=== PATIENT | female | born 1950 | race Caucasian/White ===

== ENCOUNTER 2018-09-13 16:09 | Inpatient (IN) | payer OTHER ==
[2018-09-13 16:47] VITALS: BMI 28.3
--- NOTE | 2018-09-13 17:06 | HP ---
"CIWA Score Nausea/Vomitin-Int. Nausea w/Dry Heave Muscle Tremors: 4-Moderate,w/Arms Extend Anxiety: 1-Mildly Anxious Agitation: 4-Moderately Restless Paroxysmal Sweats: 1-Minimal Palms Moist (Facial moisture w/o beads) Orientation: 0-Oriented Tacttile Disturbances: 0-None Auditory Disturbances: 0-None Visual Disturbances: 0-None Headache: 0-None Present CIWA-Ar Total Score: 14 - Admission Criteria OASAS Guidelines: Admission for Medically Managed Detox: Requires at least one of the followin. CIWA greater than 12 2. Seizures within the past 24 hours 3. Delirium tremens within the past 24 hours 4. Hallucinations within the past 24 hours 5. Acute intervention needed for co occurring medical disorder 6. Acute intervention needed for co occurring psychiatric disorder 7. Severe withdrawal that cannot be handled at a lower level of care (continued vomiting, continued diarrhea, abnormal vital signs) requiring intravenous medication and/or fluids 8. Patient presents the following: CIWA greater than 12 Admission Criteria Met: Admission criteria met Admission ROS [facility] Chief Complaint: Here for alcohol withdrawal. Allergies/Adverse Reactions: Allergies Allergy/AdvReac Type Severity Reaction Status Date / Time No Known Allergies Allergy Verified 09/13/18 16:47 History of Present Illness: Hx alcohol use since age 42. Denies hx blackouts or seizures. Denies other illicit drug use. Longest length of sobriety 1 year. Hx. aortic valve replacement and hypothyroid C/o depression - not seeing a mental health provider. Denies thoughts of harming self and others. Search Terms: Merle Martinez, 1950 Search Date: 09/13/2018 04:53:32 PM The Drug Utilization Report below displays all of the controlled substance prescriptions, if any, that your patient has filled in the last twelve months. The information displayed on this report is compiled from pharmacy submissions to the Department, and accurately reflects the information as submitted by the pharmacies. This report was requested by: Naye Yan | Reference #: [id number] There are no results for the search terms that you entered. Exam Limitations: No Limitations - Ebola screening Have you traveled outside of the country in the last 21 days: No (N) Have you had contact with anyone from an Ebola affected area: No Have you been sick,other than usual withdrawal symptoms: No Do you have a fever: No - Review of Systems Constitutional: Diaphoresis, Changes in sleep (Difficulty staying asleep) EENT: reports: Blurred Vision Respiratory: reports: Cough (Dry cough x 3 months), Shortness of Breath Cardiac: reports: No Symptoms Reported, Other (Hx aortic valve replacement) GI: reports: Diarrhea (r/t withdrawal), Nausea (r/t withdrawal) : reports: Incontinence (Stress and urge incontinence. Denies burning or pain w/ urination.) Musculoskeletal: reports: No Symptoms Reported Integumentary: reports: Rash (Fungal rash underneath breasts) Neuro: reports: Tremors Endocrine: reports: No Symptoms Reported Hematology: reports: No Symptoms Reported Psychiatric: reports: Judgement Intact, Orientated x3, Agitated, Anxious, Depressed (Denies thoughts of harming self and others.) Patient History - Patient Medical History Hx Anemia: No Hx Asthma: No Hx Chronic Obstructive Pulmonary Disease (COPD): No Hx Cancer: No Hx Cardiac Disorders: No Hx Congestive Heart Failure: No Hx Hypertension: No Hx Hypercholesterolemia: Yes (on med) Hx Pacemaker: No HX Cerebrovascular Accident: No Hx Seizures: No Hx Dementia: No Hx Diabetes: No Hx Gastrointestinal Disorders: No Hx Liver Disease: No Hx Genitourinary Disorders: No Hx Sexually Transmitted Disorders: No Hx Renal Disease (ESRD): No Hx Thyroid Disease: Yes (hypothyroidism) Hx Human Immunodeficiency Virus (HIV): No Hx Hepatitis C: No Hx Depression: Yes Hx Suicide Attempt: No Hx Bipolar Disorder: No Hx Schizophrenia: No - Patient Surgical History Past Surgical History: Yes Hx Neurologic Surgery: No Hx Cataract Extraction: No Hx Cardiac Surgery: Yes ( aortic valve repair bovine 2006 at [facility]) Hx Lung Surgery: No Hx Breast Surgery: No Hx Breast Biopsy: No Hx Abdominal Surgery: No Hx Appendectomy: No Hx Cholecystectomy: No Hx Genitourinary Surgery: No Hx Section: No Hx Orthopedic Surgery: No Anesthesia Reaction: No - PPD History Previous Implant?: Yes Documented Results: Negative w/proof Implanted On Prior R Admission?: Yes Date: 02/11/16 PPD to be Administered?: Yes - Reproductive History Patient is a Female of Child Bearing Age (11 -55 yrs old): No - Smoking Cessation Smoking history: Never smoked Have you smoked in the past 12 months: No Hx Chewing Tobacco Use: No - Substance & Tx. History Hx Alcohol Use: Yes Hx Substance Use: Yes Substance Use Type: Alcohol Hx Substance Use Treatment: Yes (detox, AA) - Substances Abused Alcohol Route: Oral Frequency: Daily Amount used: 1PINT Age of first use: 42 Date of Last Use: 09/13/18 Family Disease History - Family Disease History Family Disease History: Other: Father (alcohol,), Mother (alcohol, ) Admission Physical Exam S - Vital Signs Vital Signs: Vital Signs - 24 hr 09/13/18 16:36 Temperature 96.2 F L Pulse Rate 74 Respiratory 18 Rate Blood Pressure 126/86 - Physical General Appearance: Yes: Mild Distress, Tremorous, Irritable, Sweating (Mild facial sweating), Anxious HEENTM: Yes: EOMI (jerking movements of eyes on (L) lateral gaze), Hearing grossly Normal, Normocephalic, Normal Voice, [place], Other (Dry mucous membranes) Respiratory: Yes: Lungs Clear, Normal Breath Sounds, No Respiratory Distress Neck: Yes: No masses,lesions,Nodules, Supple Breast: Yes: Other (Dry flat rash w/ increased erythema folds of both breasts) Cardiology: Yes: Regular Rhythm, Regular Rate, S1, S2 Abdominal: Yes: Non Tender, Soft, Increased Bowel Sounds, Protuberent ( Increased abdominal adiposity) Genitourinary: Yes: Incontinient (Urge and stress incontinence) Back: Yes: Normal Inspection Musculoskeletal: Yes: full range of Motion, Gait Steady Extremities: Yes: Normal Capillary Refill, Non-Tender, Tremors (of hands when arms extended) Neurological: Yes: drywall applicator II-XII NML intact (Jerking movements of eyes on (L) lateral gaze), Fully Oriented, Alert, Motor Strength 5/5, Normal Mood/Affect Integumentary: Yes: Normal Color, Dry (Decreased skin turgor, dry lips), Warm Lymphatic: Yes: Within Normal Limits - Diagnostic (1) Nystagmus Current Visit: Yes Status: Acute (2) Stress incontinence in female Current Visit: Yes Status: Chronic (3) Intertriginous candidiasis Current Visit: Yes Status: Chronic Comment: Bilateral breast folds (4) Alcohol dependence with uncomplicated withdrawal Current Visit: Yes Status: Acute (5) H/O aortic valve repair Current Visit: Yes Status: Chronic (6) Hypothyroidism Current Visit: Yes Status: Chronic Qualifiers: Hypothyroidism type: unspecified Qualified Code(s): E03.9 - Hypothyroidism , unspecified (7) Dehydration Current Visit: Yes Status: Acute Cleared for Admission S - Detox or Rehab [facility] Level of Care: Medically Managed Detox Regimen/Protocol: Librium [facility] Breath Alcohol Content Breath Alcohol Content: 0"
[2018-09-13] MEDS ORDERED: LOPERAMIDE HCL 2 MG CAPSULE PO PRN (17:42)
[2018-09-13] MEDS ORDERED: chlordiazePOXIDE HCL 25 MG CAPSULE PO PRN (17:42)
[2018-09-13] MEDS ORDERED: IBUPROFEN 400 MG TABLET (FP) PO PRN (17:42)
[2018-09-13] MEDS ORDERED: MAG HYDROX/AL HYDROX/SIMETH 30 ML UNIT-DOSE CUP PO PRN (17:42)
[2018-09-13] MEDS ORDERED: ACETAMINOPHEN 325 MG TABLET (FP) PO PRN (17:42)
[2018-09-13] MEDS ORDERED: MAGNESIUM HYDROX 2400MG/30ML ORAL SUSPENSION 30 ML CUP PO PRN (17:42)
[2018-09-13] MEDS ORDERED: MENTHOL/PHENOL 1 EACH UD MM PRN (17:42)
[2018-09-13] MEDS ORDERED: MAGNESIUM CITRATE 300 ML BOTTLE PO PRN (17:42)
[2018-09-13] MEDS ORDERED: guaiFENesin 200 MG/10 ML 10 ML UNIT-DOSE CUPS PO PRN (17:44)
[2018-09-13] MEDS ORDERED: chlordiazePOXIDE HCL 25 MG CAPSULE PO ONE (18:30)
[2018-09-13] MEDS: THIAMINE HCL 100 MG TABLET (FP) PO SCH (22:26)
[2018-09-13] MEDS: chlordiazePOXIDE HCL 25 MG CAPSULE PO SCH (22:26)
[2018-09-13] MEDS: MELATONIN 5 MG TABLETS PO PRN (22:27)
[2018-09-14] MEDS: chlordiazePOXIDE HCL 25 MG CAPSULE PO SCH ×4 (05:22→22:21)
[2018-09-14] MEDS: LEVOTHYROXINE NA 100 MCG TABLET (FP) PO SCH (07:25)
[2018-09-14] MEDS: PRENATAL VITAMINS W/ FOLIC ACID TABLET (FP) PO SCH (10:22)
[2018-09-14] MEDS: ASPIRIN COATED 81 MG TABLET.EC PO SCH (10:22)
[2018-09-14] MEDS: NYSTATIN POWDER 100,000 UNITS/GM - 15 GM TOPICAL POWDER TP SCH (10:23)
[2018-09-14 10:41] LABS: HEMATOCRIT 35.4 % (32.4-45.2); HEMOGLOBIN 11.7 GM/dL (10.7-15.3); MCH 35.4 pg (25.7-33.7); MCHC 32.9 g/dl (32.0-36.0); MEAN CELL VOLUME 107.4 fl (80-96); PLATELET COUNT 149 K/MM3 (134-434); RDW 18.3 % (11.6-15.6); WHITE BLOOD COUNT 3.8 K/mm3 (4.0-10.0)
[2018-09-14 11:04] LABS: ALBUMIN 3.6 g/dl (3.4-5.0); ALK PHOS 76 U/L (45-117); ANION GAP 9 MMOL/L (8-16); BILIRUBIN,TOTAL 0.7 mg/dL (0.2-1); BLOOD UREA NITROGEN 13 mg/dL (7-18); CALCIUM 8.7 mg/dL (8.5-10.1); CHLORIDE 103 mmol/L (98-107); CO2 27 mmol/L (21-32); CREATININE 0.9 mg/dL (0.55-1.3); GLUCOSE,RANDOM 99 mg/dL (74-106); POTASSIUM 4.2 mmol/L (3.5-5.1); SGOT/AST 53 U/L (15-37); SGPT/ALT 35 U/L (13-61); SODIUM 139 mmol/L (136-145); TOT PROT 6.7 g/dl (6.4-8.2)
--- NOTE | 2018-09-14 12:45 | PN ---
S CIWA - CIWA Score Nausea/Vomitin Muscle Tremors: 2 Anxiety: 3 Agitation: 2 Paroxysmal Sweats: 2 Orientation: 0-Oriented Tacttile Disturbances: 2-Mild Itch/Numbness/Burn Auditory Disturbances: 0-None Visual Disturbances: 0-None Headache: 1-Very Mild CIWA-Ar Total Score: 14 S Progress Note (SOAP) Subjective: Anxiety, interrupted sleep, muscle weakness Objective: 09/14/18 12:44 Vital Signs Period Temp Pulse Resp BP Sys/Hall Pulse Ox Last 24 Hr 96.2 F-98.2 F 67-86 -18 97-130/57-86 Laboratory Last Values WBC 3.8 K/mm3 (4.0-10.0) L 09/14/18 08:00 RBC 3.30 M/mm3 (3.60-5.2) L 09/14/18 08:00 Hgb 11.7 GM/dL (10.7-15.3) 09/14/18 08:00 Hct 35.4 % (32.4-45.2) 09/14/18 08:00 MCV 107.4 fl (80-96) H 09/14/18 08:00 MCH 35.4 pg (25.7-33.7) H 09/14/18 08:00 MCHC 32.9 g/dl (32.0-36.0) 09/14/18 08:00 RDW 18.3 % (11.6-15.6) H 09/14/18 08:00 Plt Count 149 K/MM3 (134-434) 09/14/18 08:00 MPV 8.0 fl (7.5-11.1) 09/14/18 08:00 Sodium 139 mmol/L (136-145) 09/14/18 08:00 Potassium 4.2 mmol/L (3.5-5.1) 09/14/18 08:00 Chloride 103 mmol/L (98-107) 09/14/18 08:00 Carbon Dioxide 27 mmol/L (21-32) 09/14/18 08:00 Anion Gap 9 MMOL/L (8-16) 09/14/18 08:00 BUN 13 mg/dL (7-18) 09/14/18 08:00 Creatinine 0.9 mg/dL (0.55-1.3) 09/14/18 08:00 Creat Clearance w eGFR > 60 (>60) 09/14/18 08:00 Random Glucose 99 mg/dL (74-106) 09/14/18 08:00 Calcium 8.7 mg/dL (8.5-10.1) 09/14/18 08:00 Total Bilirubin 0.7 mg/dL (0.2-1) 09/14/18 08:00 AST 53 U/L (15-37) H 09/14/18 08:00 ALT 35 U/L (13-61) 09/14/18 08:00 Alkaline Phosphatase 76 U/L (45-117) 09/14/18 08:00 Total Protein 6.7 g/dl (6.4-8.2) 09/14/18 08:00 Albumin 3.6 g/dl (3.4-5.0) 09/14/18 08:00 RPR Titer Nonreactive (NONREACTIVE) 09/14/18 08:10 Labs noted Assessment: 09/14/18 12:44 Withdrawal sx Plan: Continue detox
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
[2018-09-14] MEDS: THIAMINE HCL 100 MG TABLET (FP) PO SCH (22:21)
[2018-09-14] MEDS: MELATONIN 5 MG TABLETS PO PRN (22:22)
[2018-09-15] MEDS: chlordiazePOXIDE HCL 25 MG CAPSULE PO SCH ×3 (05:43→18:08)
[2018-09-15] MEDS: LEVOTHYROXINE NA 100 MCG TABLET (FP) PO SCH (06:32)
[2018-09-15] MEDS: PRENATAL VITAMINS W/ FOLIC ACID TABLET (FP) PO SCH (10:20)
[2018-09-15] MEDS: ASPIRIN COATED 81 MG TABLET.EC PO SCH (10:20)
[2018-09-15 11:13] LABS: URINE APPEARANCE SLCLOUDY; URINE BILIRUBIN NEGATIVE (<2.0 mg/dL); URINE COLOR YELLOW; URINE GLUCOSE (UA) NEGATIVE (NEGATIVE); URINE KETONE NEGATIVE (NEGATIVE); URINE LEUK ESTERASE NEGATIVE (NEGATIVE); URINE NITRITE POSITIVE (NEGATIVE); URINE PROTEIN NEGATIVE (NEGATIVE); URINE UROBILINOGEN NEGATIVE mg/dL (0.2-1.0)
[2018-09-15 11:19] LABS: EPI CELLS FEW /HPF (FEW); URINE BACTERIA FEW /hpf (NONE SEEN); URINE MUCUS RARE
--- NOTE | 2018-09-15 12:35 | PN ---
[facility] CIWA - CIWA Score Nausea/Vomitin-No Nausea/No Vomiting Muscle Tremors: 3 Anxiety: 1-Mildly Anxious Agitation: 2 Paroxysmal Sweats: 1-Minimal Palms Moist Orientation: 0-Oriented Tacttile Disturbances: 1-Very Mild Itch/Numbness Auditory Disturbances: 1-Very Mild Visual Disturbances: 0-None Headache: 1-Very Mild CIWA-Ar Total Score: 10 S Progress Note (SOAP) Subjective: tremor sweat anxiety trouble sleep at night low energy Objective: 09/15/18 12:36 Vital Signs Temperature 97.9 F 09/15/18 10:19 Pulse Rate 69 09/15/18 10:19 Respiratory Rate 18 09/15/18 10:19 Blood Pressure 113/65 09/15/18 10:19 O2 Sat by Pulse Oximetry (%) Laboratory Last Values WBC 3.8 K/mm3 (4.0-10.0) L 09/14/18 08:00 RBC 3.30 M/mm3 (3.60-5.2) L 09/14/18 08:00 Hgb 11.7 GM/dL (10.7-15.3) 09/14/18 08:00 Hct 35.4 % (32.4-45.2) 09/14/18 08:00 MCV 107.4 fl (80-96) H 09/14/18 08:00 MCH 35.4 pg (25.7-33.7) H 09/14/18 08:00 MCHC 32.9 g/dl (32.0-36.0) 09/14/18 08:00 RDW 18.3 % (11.6-15.6) H 09/14/18 08:00 Plt Count 149 K/MM3 (134-434) 09/14/18 08:00 MPV 8.0 fl (7.5-11.1) 09/14/18 08:00 Sodium 139 mmol/L (136-145) 09/14/18 08:00 Potassium 4.2 mmol/L (3.5-5.1) 09/14/18 08:00 Chloride 103 mmol/L (98-107) 09/14/18 08:00 Carbon Dioxide 27 mmol/L (21-32) 09/14/18 08:00 Anion Gap 9 MMOL/L (8-16) 09/14/18 08:00 BUN 13 mg/dL (7-18) 09/14/18 08:00 Creatinine 0.9 mg/dL (0.55-1.3) 09/14/18 08:00 Creat Clearance w eGFR > 60 (>60) 09/14/18 08:00 Random Glucose 99 mg/dL (74-106) 09/14/18 08:00 Calcium 8.7 mg/dL (8.5-10.1) 09/14/18 08:00 Total Bilirubin 0.7 mg/dL (0.2-1) 09/14/18 08:00 AST 53 U/L (15-37) H 09/14/18 08:00 ALT 35 U/L (13-61) 09/14/18 08:00 Alkaline Phosphatase 76 U/L (45-117) 09/14/18 08:00 Total Protein 6.7 g/dl (6.4-8.2) 09/14/18 08:00 Albumin 3.6 g/dl (3.4-5.0) 09/14/18 08:00 Urine Color Yellow 09/15/18 07:52 Urine Appearance Slcloudy 09/15/18 07:52 Urine pH 6.0 (5.0-8.0) 09/15/18 07:52 Ur Specific [place] 1.013 (1.010-1.035) 09/15/18 07:52 Urine Protein Negative (NEGATIVE) 09/15/18 07:52 Urine Glucose (UA) Negative (NEGATIVE) 09/15/18 07:52 Urine Ketones Negative (NEGATIVE) 09/15/18 07:52 Urine Blood Negative (NEGATIVE) 09/15/18 07:52 Urine Nitrite Positive (NEGATIVE) 09/15/18 07:52 Urine Bilirubin Negative (<2.0 mg/dL) 09/15/18 07:52 Urine Urobilinogen Negative mg/dL (0.2-1.0) 09/15/18 07:52 Ur Leukocyte Esterase Negative (NEGATIVE) 09/15/18 07:52 Urine WBC (Auto) 3 /hpf (3-5) 09/15/18 07:52 Urine RBC (Auto) <1 /hpf (0-3) 09/15/18 07:52 Ur Epithelial Cells Few /HPF (FEW) 09/15/18 07:52 Urine Bacteria Few /hpf (NONE SEEN) 09/15/18 07:52 Urine Mucus Rare 09/15/18 07:52 RPR Titer Nonreactive (NONREACTIVE) 09/14/18 08:10 lab noted repeat ua 09/15/18 12:41 Assessment: 09/15/18 12:37 withdrawal sx Plan: continue detox repeat ua
[2018-09-15] MEDS: NYSTATIN POWDER 100,000 UNITS/GM - 15 GM TOPICAL POWDER TP SCH (15:47)
[2018-09-15] MEDS: chlordiazePOXIDE 5 MG CAPSULE PO SCH (22:21)
[2018-09-15] MEDS: THIAMINE HCL 100 MG TABLET (FP) PO SCH (22:21)
[2018-09-15] MEDS: MELATONIN 5 MG TABLETS PO PRN (22:22)
[2018-09-15 23:14] LABS: URINE APPEARANCE TURBID; URINE BILIRUBIN NEGATIVE (<2.0 mg/dL); URINE COLOR YELLOW; URINE GLUCOSE (UA) NEGATIVE (NEGATIVE); URINE KETONE NEGATIVE (NEGATIVE); URINE LEUK ESTERASE 1+ (NEGATIVE); URINE NITRITE NEGATIVE (NEGATIVE); URINE PROTEIN NEGATIVE (NEGATIVE); URINE UROBILINOGEN NEGATIVE mg/dL (0.2-1.0)
[2018-09-15 23:17] LABS: URINE MUCUS FEW
[2018-09-16] MEDS: chlordiazePOXIDE 5 MG CAPSULE PO SCH ×3 (05:54→17:20)
[2018-09-16] MEDS: LEVOTHYROXINE NA 100 MCG TABLET (FP) PO SCH (06:36)
--- NOTE | 2018-09-16 10:12 | PN ---
[facility] Progress Note (SOAP) Subjective: sweats mild shakes Objective: 09/16/18 10:11 Vital Signs Temperature 97.7 F 09/16/18 09:30 Pulse Rate 76 09/16/18 09:30 Respiratory Rate 16 09/16/18 09:30 Blood Pressure 111/67 09/16/18 09:30 O2 Sat by Pulse Oximetry (%) aaox3 ambulating no acute distress Assessment: 09/16/18 10:12 mild withdrawal sx Plan: continue detox increase fluids d/c in am
[2018-09-16] MEDS: PRENATAL VITAMINS W/ FOLIC ACID TABLET (FP) PO SCH (10:19)
[2018-09-16] MEDS: NYSTATIN POWDER 100,000 UNITS/GM - 15 GM TOPICAL POWDER TP SCH (10:19)
[2018-09-16] MEDS: ASPIRIN COATED 81 MG TABLET.EC PO SCH (10:19)
[2018-09-16] MEDS: MELATONIN 5 MG TABLETS PO PRN (22:20)
[2018-09-16] MEDS: THIAMINE HCL 100 MG TABLET (FP) PO SCH (22:20)
[2018-09-16] MEDS: chlordiazePOXIDE HCL 10 MG CAPSULE PO SCH (22:20)
--- NOTE | 2018-09-16 23:55 | EKG ---
Test Reason : Blood Pressure : / mmHG Vent. Rate : 072 BPM Atrial Rate : 072 BPM P-R Int : 184 ms QRS Dur : 088 ms QT Int : 414 ms P-R-T Axes : 036 007 060 degrees QTc Int : 453 ms NORMAL SINUS RHYTHM NONSPECIFIC T WAVE ABNORMALITY ABNORMAL ECG WHEN COMPARED WITH ECG OF 04-JAN-2017 19:02, NO SIGNIFICANT CHANGE WAS FOUND Confirmed by EDITH BELLAMY MD ([id number]) on 09/16/2018 11:55:21 PM Referred By: Confirmed By:EDITH BELLAMY MD
[2018-09-17] MEDS: chlordiazePOXIDE HCL 10 MG CAPSULE PO SCH (05:53)
[2018-09-17] MEDS: LEVOTHYROXINE NA 100 MCG TABLET (FP) PO SCH (07:27)
--- NOTE | 2018-09-17 08:45 | DS ---
[facility] Detox Discharge Summary Admission Date: 09/13/18 Discharge Date: 09/17/18 - History Present History: Alcohol Dependence - Physical Exam Results Vital Signs: Vital Signs Temperature 97.5 F L 09/17/18 07:30 Pulse Rate 68 09/17/18 07:30 Respiratory Rate 16 09/17/18 07:30 Blood Pressure 106/69 09/17/18 07:30 O2 Sat by Pulse Oximetry (%) - Treatment Hospital Course: Detox Protocol Followed, Detoxed Safely, Responded well, Discharged Condition Good, Rehab Referral Accepted - Medication Discharge Medications: Ambulatory Orders Levothyroxine [Synthroid -] 100 mcg PO DAILY@0700 #30 tablet 01/08/17 Aspirin [Aspirin EC] 81 mg PO DAILY 09/13/18 - Diagnosis (1) Alcohol dependence with uncomplicated withdrawal Current Visit: Yes Status: Chronic (2) Alcohol-induced mood disorder Current Visit: Yes Status: Acute (3) Dehydration Current Visit: Yes Status: Acute (4) Insomnia Current Visit: Yes Status: Acute (5) Nystagmus Current Visit: Yes Status: Acute (6) Depressive disorder Current Visit: Yes Status: Chronic (7) H/O aortic valve repair Current Visit: No Status: Chronic (8) Hypothyroidism Current Visit: Yes Status: Chronic Qualifiers: Hypothyroidism type: unspecified Qualified Code(s): E03.9 - Hypothyroidism , unspecified (9) Intertriginous candidiasis Current Visit: Yes Status: Chronic (10) Stress incontinence in female Current Visit: Yes Status: Chronic (11) Anxiety and depression Current Visit: No Status: Acute (12) Aortic valve replaced Current Visit: No Status: Acute (13) MDD (major depressive disorder) Current Visit: No Status: Acute (14) Depression Current Visit: No Status: Chronic Qualifiers: Depression Type: unspecified Qualified Code(s): F32.9 - Major depressive disorder, single episode, unspecified (15) HTN (hypertension) Current Visit: No Status: Chronic Qualifiers: Hypertension type: essential hypertension Qualified Code(s): I10 - Essential (primary) hypertension (16) Hyperlipidemia Current Visit: No Status: Chronic Qualifiers: Hyperlipidemia type: other hyperlipidemia (17) Syncopal episodes Current Visit: No Status: Chronic - AMA Did Patient Leave Against Medical Advice: No (referred to outpatient)
[2018-09-17] MEDS: PRENATAL VITAMINS W/ FOLIC ACID TABLET (FP) PO SCH (09:34)
[2018-09-17] MEDS: NYSTATIN POWDER 100,000 UNITS/GM - 15 GM TOPICAL POWDER TP SCH (09:34)
[2018-09-17] MEDS: ASPIRIN COATED 81 MG TABLET.EC PO SCH (09:34)
[2018-09-17 09:44] VITALS: BP 119/75; PULSE 78; TEMP 96.8
== END 2018-09-17 09:37 | disposition home or self-care (01) | DRG 897 ==
LOC: YASAS 16:09 → Y6N 18:18
PROC: HZ2ZZZZ Detoxification Services for Substance Abuse Treatment (ICD-10-PCS; principal; 2018-09-13)
DX: F10.230 Alcohol dependence with withdrawal, uncomplicated (principal); F33.9 Major depressive disorder, recurrent, unspecified; F10.24 Alcohol dependence with alcohol-induced mood disorder; F41.8 Other specified anxiety disorders; I10 Essential (primary) hypertension; E78.5 Hyperlipidemia, unspecified; E03.9 Hypothyroidism, unspecified; G47.00 Insomnia, unspecified; N39.3 Stress incontinence (female) (male); B37.2 Candidiasis of skin and nail; Z95.2 Presence of prosthetic heart valve
CPT/HCPCS: 36415; 80053; 81003; 81015; 85027; 86593; 93005; 93010